=== PATIENT | male | born 1995 | race Caucasian/White ===

== ENCOUNTER 2017-04-27 20:05 | Emergency (ER) | payer OTHER ==
[~2017-04-27] VITALS: Ht 185.4 cm; Wt 70.4 kg
[2017-04-27 20:07] VITALS: TEMP 36.4; Ht 185.4 cm; Wt 70.4 kg
--- NOTE | 2017-04-27 21:27 | EMERGENCY ROOM VISIT NOTE ---
ED Visit Note First contact with patient: 20:24 CHIEF COMPLAINT: Left hand injury 2 hours ago HISTORY OF PRESENT ILLNESS: Patient is a [id number] 22-year-old white male who presents emergency department for evaluation of a left hand injury. He was playing ultimate [employer] a couple of hours ago, when he fell, landing on his extended left hand and wrist. He had immediate onset of pain in the left hand, primarily in the fourth and fifth metacarpal region. He notes pain when he tries to move his left fourth finger. He rates his discomfort a 5/10. There was no audible cracking sound at the time of the injury. REVIEW OF SYSTEMS: Review of systems as per HPI. All other systems reviewed were negative. At least 6 systems reviewed. PMH: Electronic medical records are reviewed and summarized as above/below. See Problem List. SOCIAL HISTORY: College student. Lives with roommates. Nonsmoker. PHYSICAL EXAM: Vital Signs: Reviewed Nurse's notes. CONSTITUTIONAL: Patient is a pleasant, well-appearing 22-year-old white male who is awake and alert and in no acute distress. MUSCULOSKELETAL: Examination of the left hand show mild dorsal soft tissue swelling, and pain to palpation over the fourth metacarpal. No obvious fracture crepitus. Skin is intact. There is discomfort with flexion and extension of the fingers. Wrist is nontender. EMERGENCY DEPARTMENT COURSE: X-rays of the left hand were obtained, and findings are consistent with a fourth metacarpal fracture. Patient was placed in an ulnar gutter Ortho-Glass splint. He was referred to the [facility] orthopedics for follow-up. He declined narcotic analgesia. Differential diagnoses entertained included fracture, dislocation, contusion, sprain, among others. Medication reconciliation: I attest that I have personally reviewed the patient' s current medication list. Blood pressure screening : Patient was found to have normal blood pressure on screening and does not require follow-up. L HAND MIN 3 VIEWS ROUTINE HISTORY: 22 years-old Male injury acute left hand pain status post trauma COMPARISON: None available TECHNIQUE: 3 views of the left hand FINDINGS: There is an acute obliquely oriented fracture of the proximal and mid diaphyseal portions of the fourth metacarpal demonstrating 2 mm lateral displacement. Moderate associated soft tissue swelling. No additional acute fracture or dislocation. Negative for opaque foreign body. IMPRESSION: Acute minimally displaced oblique fracture of the fourth metacarpal. Current/Historical Medications No Active Prescriptions or Reported Meds Allergies Coded Allergies: No Known Allergies (Unverified , 04/27/17) Vital Signs Date Time Temp Pulse Resp B/P (MAP) Pulse Ox O2 Delivery O2 Flow Rate FiO2 04/27/17 21:36 65 16 125/81 99 04/27/17 20:07 36.4 84 20 123/76 95 Room Air Departure Information Impression Primary Impression: Metacarpal bone fracture Prescriptions No Active Prescriptions or Reported Meds Referrals No Doctor, Assigned (PCP) Gautam Easley MD Patient Instructions [facility] Additional Instructions Ibuprofen(Motrin, Advil) may be used for fever or pain. Use 600mg every six hours as needed. Take with food. Avoid using more than 2400mg in a 24 hour period. Do not use 2400mg per day for more than three consecutive days without physician direction. Prolonged inappropriate use can lead to stomach upset or ulcers. This medication can be taken if you need to drive, work, or perform activities which may be dangerous when taking narcotic pain medication. (AND/OR) Acetaminophen(Tylenol) may be used for fever or pain. Use 1000mg every six hours as needed. Avoid using more than 3000mg in a 24 hour period. This medication can be taken if you need to drive, work, or perform activities which may be dangerous when taking narcotic pain medication. Ice compresses for 20 minutes at a time four times daily for 2-3 days. Rest and elevate your injury. Do not get the splint wet. If your splint feels excessively tight, you have worsening pain, develop numbness or tingling, or your digits appear blue, loosen the narendra wrap. Then reapply the narendra wrap gently without removing the splint. If your symptoms are not quickly relieved return to the ER for re- evaluation. Continue current medications. Return to the ER immediately for any numbness, tingling, severe pain, extreme swelling in the extremity or as needed. Call [facility] tomorrow to arrange follow up for your injury. Problem Qualifiers Primary Impression: Metacarpal bone fracture Encounter type: initial encounter Metacarpal bone: fourth Fracture type: closed Metacarpal location: shaft Fracture alignment: displaced Laterality : left Qualified Codes: S62.325A - Displaced fracture of shaft of fourth metacarpal bone, left hand, initial encounter for closed fracture
--- NOTE | 2017-04-27 21:34 | DIAGNOSTIC IMAGING REPORT ---
L HAND MIN 3 VIEWS ROUTINE HISTORY: 22 years-old Male injury acute left hand pain status post trauma COMPARISON: None available TECHNIQUE: 3 views of the left hand FINDINGS: There is an acute obliquely oriented fracture of the proximal and mid diaphyseal portions of the fourth metacarpal demonstrating 2 mm lateral displacement. Moderate associated soft tissue swelling. No additional acute fracture or dislocation. Negative for opaque foreign body. IMPRESSION: Acute minimally displaced oblique fracture of the fourth metacarpal. The above report was generated using voice recognition software. It may contain grammatical, syntax or spelling errors. Electronically signed by: Taras Harding M.D. 04/27/2017 9:32 PM Dictated Date/Time: 04/27/2017 9:31 PM
[2017-04-27 21:36] VITALS: BP 125/81; PULSE 65; O2SAT 99
== END 2017-04-27 21:38 | disposition home or self-care (01) ==
LOC: C.EDB 20:07 → C.EDD 21:38
DX: S62.325A Displaced fracture of shaft of fourth metacarpal bone, left hand, initial encounter for closed fracture (principal); W19.XXXA Unspecified fall, initial encounter

== ENCOUNTER → 2017-05-08 | Day surgery (SDC) | payer OTHER ==
[2017-05-07 11:05] VITALS: Ht 185.4 cm; Wt 70.5 kg
[~2017-05-08] VITALS: Ht 185.4 cm; Wt 70.5 kg
[~2017-05-08] MED LIST: ATROPINE SULFATE 0.1 MG/ML 5ML SYR IV PRN; BUPIVACAINE/EPINEPHRINE 0.5% MPF 1:200,000 30 ML VIAL ONE; CEFAZOLIN 1000MG IV PUSH 5 ML IV SCH; DEXAMETHASONE SOD INJ 4 MG/ML VIAL ONE; EpHEDrine SULFATE INJ 50 MG/ML AMP IV PRN; EpINEphrine INJ 1MG/ML AMP 1 MG/ML AMP ONE; FENTANYL CITRATE INJ 50 MCG/1 ML 2 ML VIAL IV PRN; FENTANYL CITRATE INJ 50 MCG/1 ML 2 ML VIAL ONE; HYDROmorphone INJ 1 MG/ML SYR IV PRN; LACTATED RINGER'S 1000ML 1,000 ML IV SCH; LIDOCAINE HCL 1% 20 ML VIAL ONE; LIDOCAINE HCL 2% 2 ML VIAL (20MG/ML) ONE; MIDAZOLAM HCL 1 MG/ML 2ML VIAL ONE; MoRPHine SULFATE 2 MG/ML CARP IV PRN; MoRPHine SULFATE 4 MG/ML 1 ML CARP\\VIAL IV PRN; ONDANSETRON INJ 2 MG/ML 2 ML VIAL IV PRN; ONDANSETRON INJ 2 MG/ML 2 ML VIAL ONE; OXYCODONE/ACETAMINOPHEN 5-325 TAB PO PRN; PROPOFOL IV EMULSION 10 MG/ML 20 ML VIAL IV ONE
--- NOTE | 2017-05-08 07:50 | History & Physical Bridge - SC ---
H&P Re-Evaluation Bridge Note: I have examined the patient, reviewed the History & Physical and in the interval since the performance of the History & Physical I have noted the following changes of clinical significance: No changes noted
--- NOTE | 2017-05-08 10:20 | Discharge Instructions-SurgCtr ---
Discharge Instructions Date of Service May 08, 2017. Visit Reason for Visit: Left 4TH Metracarpal Fracture Discharge Discharge Diagnosis / Problem: Status post ORIF Left 4th Metacarpal Discharge Goals Goal(s): Decrease discomfort, Improve function Activity Recommendations Activity Limitations: per Instructions/Follow-up section Lifting Limitations: no more than 5 pounds May Resume Sexual Activity: when tolerated Shower/Bathe: may shower/bathe in 3 days Driving or Machine Use: Not while on Narcotics or splinted Anesthesia . Post Anesthesia Instructions: If you have had General Anesthesia or IV Sedation: * Do not drive today. * Resume driving when surgeon permits. * Do not make important decisions or sign legal documents today. * Call surgeon for: 1. Temperature elevations greater than 101 degrees F. 2. Uncontrollable pain. 3. Excessive bleeding. 4. Persistent nausea and vomiting. 5. Medication intolerance (nausea, vomiting or rash). * For nausea and vomiting use only clear liquids such as: tea, soda, bouillon until nausea subsides, then gradually increase diet as tolerated. * If you have any concerns or questions, call your surgeon's office. If physician is unavailable and it is an emergency, call 911 or go to the nearest emergency room. . Instructions / Follow-Up Instructions / Follow-Up Dr. Brown in 10-15 days. PT in 3-4 days. Diet Recommendations Home Diet: resume previous diet Procedures Procedures Performed: Left 4th Metacarpal Fracture Open Reduction Internal Fixation Pending Studies Studies pending at discharge: no School Instructions Return To School: time frame (within 3-7 days) Medical Emergencies . Who to Call and When: Medical Emergencies: If at any time you feel your situation is an emergency, please call 911 immediately. . Non-Emergent Contact Non-Emergency issues call your: Surgeon Call Non-Emergent contact if: temperature is above 101.5, your pain is not controlled, wound has increased drainage, wound has increased redness . . "Provider Documentation" section prepared by Tyler Brown. .
--- NOTE | 2017-05-08 10:22 | [facility] Post Operative Brief Note ---
Immediate Operative Summary Operative Date May 08, 2017. Pre-Operative Diagnosis Left 4th Metacarpal Fracture Post-Operative Diagnosis Same Procedure(s) Performed Left 4th Metacarpal Fracture Open Reduction Internal Fixation Surgeon Dr. Trip Brown Senior Integration Developer Surgeon(s) Dr. Brigitte Cano Estimated Blood Loss 12 CC Findings Displaced Left 4th Metacarpal shaft fracture. Fluids (cc crystalloids) 700 Specimens None Drains n/a Anesthesia LMA Complication(s) None Disposition Recovery Room / PACU (Stable)
--- NOTE | 2017-05-08 10:25 | [facility] Operative Report ---
Operative Report Operative Date May 08, 2017. Pre-Operative Diagnosis Left 4th Metacarpal Fracture Post-Operative Diagnosis Same Procedure(s) Performed Left 4th Metacarpal Fracture Open Reduction Internal Fixation Surgeon Dr. Trip Brown Demo Event Specialist Surgeon(s) Dr. Brigitte Cano Estimated Blood Loss 12 CC Findings Displaced Left 4th Metacarpal shaft fracture. Fluids (cc crystalloids) 700 Specimens None Drains n/a Anesthesia LMA Complication(s) None Disposition Recovery Room / PACU (Stable) Implants 1) 5 Hole 1.5 mm Condylar Plate (Synthes), T-[address] 2) 1.5 mm Cortical Screws (10 x 2, 14 & 16 mm). 3) 1.5 mm Locking Screws (10, 11, 12 mm). Indications The patient is a 22 year old male with a displaced left fourth metacarpal fracture, that I recommended surgical fixation. The patient understands the risks of surgery, which include but are not limited to: bleeding, infection, re- operation, damage to nerves and arteries, continued pain, progression of arthritis, mal-union, non-union, and stiffness. The patient understands all of these instructions and explanations, all of their questions have been satisfactorily addressed. The patient has elected to proceed with surgery and the informed consent was signed. Description of Procedure The patient was taken to the Operating Room and placed in the supine position on the operating table. After general anesthetic was administered a multidisciplinary time-out was performed identifying my initials on the left upper extremity as the correct and operative limb. Prior to the incision being made, 1 gram of intravenous Ancef were given. The left upper extremity was prepped and draped in the usual orthopaedic sterile fashion. The planned incision between the fourth and fifth metacarpal was marked and was then injected with 4 cc of a 50:50 mix of 1% Lidocaine plain and 0.5% Bupivacaine with epinephrine. An ulnar nerve block was also performed in the standard fashion using another 4 cc of above-noted mixture. An Esmarch was used to exsanguinate the limb and the tourniquet was inflated to 250 mmHg. The planned incision was carefully carried down to the extensor mechanism, protecting any superficial nerves and vessels. The overlying fascia and periosteum was incised over the distal fragment which was exposed first followed by the proximal Fragment. The extensor tendon was protected throughout. The fragments were debrided of hematoma with dental pick, rongeur, irrigation and suction. Care was taken not to devitalize the fragments. The two fragments were reduced and held with a K wires and pointed reduction clamp. Fluoroscopy was brought in to ensure near anatomic reduction. A 1.5 mm lag screw was placed in the standard fashion. The K wire and pointed reduction clamp were able to be removed, to assess the plate that would be placed. A 1.5 mm 5 hole condylar plate was selected and fit well. The plate was held in place with 2 K wires. This was confirmed by Fluoro. 2 cortical screws were placed in the distal fragment and one through the oblong hole in the proximal fragment. The K wires were removed. 2 locking screws were placed in the proximal fragment and one in the distal fragment. Fluoroscopy was used to show a near anatomic reduction with good position of the fracture and the hardware. The wound was copiously irrigated. The periosteum and overlying fascia was closed over the plate with 3-0 Vicryl. The subcutaneous tissue was closed with 3-0 Vicryl. The skin was closed with 4- 0 Monocryl in a running subcuticular fashion. It was covered with Dermabond and once dried Steri-Strips were placed over top. The wound was dressed with sterile gauze, sterile Webril, and a volar resting splint was placed with huy taping the ring to middle finger. The sponge and needle counts were correct. He was taken to the recovery room in stable condition. Post-op Instructions: Pain medicine prescription was given pre-operatively to be taken as needed. The patient will follow up with me in 10-15 days. I attest to the content of the Intraoperative Record and any orders documented therein. Any exceptions are noted below.
[2017-05-08 11:25] VITALS: TEMP 36.5
--- NOTE | 2017-05-08 11:33 | Anesthesiology Progress Note ---
Anesthesia Post Op Note Date & Time May 08, 2017 at 11:33 Vital Signs Pain Intensity: 2 Vital Signs Past 12 Hours Date Time Temp Pulse Resp B/P (MAP) Pulse Ox O2 Delivery O2 Flow Rate FiO2 05/08/17 11:16 126/68 05/08/17 11:14 56 14 100 05/08/17 11:14 57 14 05/08/17 11:13 51 14 100 05/08/17 11:13 52 14 05/08/17 11:11 36.9 57 16 125/69 99 Room Air 05/08/17 11:11 125/69 05/08/17 11:08 52 17 05/08/17 11:08 52 17 99 05/08/17 11:07 52 13 05/08/17 11:07 51 13 100 05/08/17 11:06 130/69 05/08/17 11:02 56 16 100 05/08/17 11:02 57 16 05/08/17 11:01 127/67 05/08/17 10:57 54 15 100 05/08/17 10:57 54 15 05/08/17 10:56 56 19 05/08/17 10:56 57 19 126/65 100 05/08/17 10:51 48 11 128/64 100 05/08/17 10:51 49 11 05/08/17 10:46 55 17 113/58 100 05/08/17 10:46 57 17 05/08/17 10:44 128/41 05/08/17 10:43 112/102 05/08/17 10:41 67 19 95 05/08/17 10:41 61 19 05/08/17 10:41 36.3 68 14 128/41 99 Diffusion Mask 6 05/08/17 07:19 36.3 48 16 114/68 (83) 99 Room Air Notes Mental Status: alert / awake / arousable, participated in evaluation Pt Amnestic to Procedure: Yes Nausea / Vomiting: adequately controlled Pain: adequately controlled Airway Patency, RR, SpO2: stable & adequate BP & HR: stable & adequate Hydration State: stable & adequate Anesthetic Complications: no major complications apparent
[2017-05-08 12:09] VITALS: BP 121/73; PULSE 47; O2SAT 100
== END | disposition home or self-care (01) ==
LOC: X.SURG 06:54
PROVIDERS: ATTEND Orthopaedic Surgery Sports Medicine
DX: S62.325A Displaced fracture of shaft of fourth metacarpal bone, left hand, initial encounter for closed fracture (principal); W18.39XA Other fall on same level, initial encounter; Y93.74 Activity, frisbee

== ENCOUNTER → 2017-06-17 | Outpatient (CLI) | payer OTHER | END | disposition home or self-care (01) | LOC: C.RDSM 12:30 | PROVIDERS: ATTEND Orthopaedic Surgery Sports Medicine | DX: M79.642 Pain in left hand (principal); Z96.7 Presence of other bone and tendon implants ==